=== PATIENT | male | born 1965 | race Caucasian/White ===

== ENCOUNTER → 2017-09-08 | Outpatient (REF) | payer BC | LOC: M SFHCCLAY 15:21 | PROVIDERS: ATTEND Family Medicine | DX: E78.2 Mixed hyperlipidemia (principal); R03.0 Elevated blood-pressure reading, without diagnosis of hypertension; R53.83 Other fatigue; Z53.9 Procedure and treatment not carried out, unspecified reason ==

== ENCOUNTER → 2017-10-20 | Outpatient (REF) | payer BC | LOC: M SFHCCLAY 15:42 | PROVIDERS: ATTEND Family Medicine | DX: E03.9 Hypothyroidism, unspecified (principal); Z53.8 Procedure and treatment not carried out for other reasons ==

== ENCOUNTER → 2018-01-19 | Outpatient (REF) | payer BC | LOC: M SFHCCLAY 15:48 | DX: E03.9 Hypothyroidism, unspecified (principal) ==

== ENCOUNTER → 2020-08-30 | Outpatient (CLI) | payer BC ==
--- NOTE | 2020-08-30 08:05 | REPVR ---
PROCEDURE INFORMATION: Exam: MR Lumbar Spine Without Contrast. Exam date and time: 08/30/2020 7:38 AM Age: 55 years old Clinical indication: Other: Lumbar spondylosis lbp sacroiliac inflamation TECHNIQUE: Imaging protocol: Multiplanar magnetic resonance images of the lumbar spine without intravenous contrast. COMPARISON: No relevant prior studies available. FINDINGS: Vertebrae: The lumbar vertebral bodies are normal in height,signal intensity and alignment.No acute fracture or dislocation is seen. Spinal epidural space: There is no evidence of epidural masses or hemorrhage. Spinal cord: The conus medullaris is normal. There is thickening and clumping of the cauda equina nerve roots from L4-S1 levels raising the suspicion for arachnoiditis. Clinical correlation is recommended. L1-L2: There is no significant degenerative disc herniation.The spinal canal and neural foramina are patent and without significant stenosis. L2-L3: Mildly reduced in height and T2 signal indicating degeneration. Mild degenerative endplate changes with Schmorl's node along the inferior endplate of L2 vertebral body. There is a mild diffuse posterior bulge causing mild effacement of the thecal sac.The spinal canal and neural foramina are patent and without significant stenosis. L3-L4: Small right foraminal protrusion. Mild facet arthropathy.There is mild right foraminal stenosis. L4-L5: There is a mild diffuse posterior bulge causing mild effacement of the thecal sac.The facet joints demonstrate mild degenerative hypertrophy and sclerosis.The spinal canal and neural foramina are patent and without significant stenosis. L5-S1: Moderate right paracentral and foraminal herniation. Mild facet arthropathy. Moderate right lateral recess narrowing and mild right foraminal stenosis. Soft tissues: The prevertebral soft tissues appear normal. IMPRESSION: 1. MRI of the lumbar spine reveals mild multilevel degenerative spondylitic changes and degenerative disc disease as described above. 2. There is thickening and clumping of the cauda equina nerve roots from L4-S1 levels raising the suspicion for arachnoiditis. Clinical correlation is recommended. Electronically signed by: Andreas Hong On 08/30/2020 08:05:17 AM
== END ==
LOC: M RAD 06:24
PROVIDERS: ATTEND Family Medicine
DX: M47.816 Spondylosis without myelopathy or radiculopathy, lumbar region (principal); M51.26 Other intervertebral disc displacement, lumbar region; M46.1 Sacroiliitis, not elsewhere classified

== ENCOUNTER → 2024-05-03 | Outpatient (CLI) | payer BC | LOC: M PLAIMG 09:28 | PROVIDERS: ATTEND Family Medicine | DX: M47.816 Spondylosis without myelopathy or radiculopathy, lumbar region (principal) ==

== ENCOUNTER → 2024-10-21 | Outpatient (REF) | payer BC | LOC: M SFHCCLAY 15:43 | PROVIDERS: ATTEND Family Medicine | DX: Z53.20 Procedure and treatment not carried out because of patient's decision for unspecified reasons (principal); E03.9 Hypothyroidism, unspecified; R73.01 Impaired fasting glucose ==